=== PATIENT | male | born 2000 | race Two or more races ===

== ENCOUNTER 2023-06-20 17:13 | Emergency (ER) | payer OTHER ==
[~2023-06-20] VITALS: Ht 172.7 cm; Wt 61.2 kg
[2023-06-20 18:05] VITALS: BP 114/65; TEMP 98.4; O2SAT 98
== END 2023-06-20 18:06 | disposition home or self-care (01) ==
LOC: ER 17:31
DX: Z00.00 Encounter for general adult medical examination without abnormal findings (principal)